=== PATIENT | female | born 1975 | race Caucasian/White ===

== ENCOUNTER → 2024-06-19 | Outpatient (CLI) | payer SELFPAY ==
--- NOTE | 2024-06-19 18:55 | CT_ITS ---
STUDY: CT FACIAL BONES WITHOUT CONTRAST REASON FOR EXAM: Female, 49 years old. SINUSITIS RADIATION DOSAGE (If Supplied By Facility): CTDIvol = ( 33.06 ) mGy, DLP = ( 821.45 ) mGycm TECHNIQUE: The patient was scanned in a multi detector CT scanner. Sagittal and coronal images were reconstructed. Individualized dose optimization techniques were used for this CT. COMPARISON: None. FINDINGS: Calcifications are seen within the palatine tonsils bilaterally. This is worse on the right side. This is suggestive of a tonsillar stones. Small cervical lymph nodes. Normal orbital constantino and orbital contents. Normal nasal bones and anterior nasal spine. Normal facial bones. There is no demonstrated fracture. Partial opacification of the right maxillary sinus. Opacification of the left maxillary sinus. Opacification of the ethmoid sinuses as well as the sphenoid sinus. Opacification of the frontal sinuses. Nasal polyps course in the right nasal fossa. CT/Sinus/Facial Bone IMPRESSION: Pansinusitis. Electronically Signed: Austin Henderson MD at 10:08 EDT ,
== END | disposition home or self-care (01) ==
PROVIDERS: PCP Family Medicine; Referring Provider Otolaryngology; Visit Provider Otolaryngology
DX: J32.8 Other chronic sinusitis (principal)
CPT/HCPCS: 70486